=== PATIENT | female | born 1995 | race Two or more races ===

== ENCOUNTER 2024-11-13 10:31 | Emergency (ER) | payer MEDICAID ==
[~2024-11-13] VITALS: Ht 167.6 cm; Wt 80.0 kg
[2024-11-13] MEDS: OLANZAPINE 10 MG/VIAL IM ONE (10:46)
[2024-11-13] MEDS: LORAZEPAM 2MG/ML INJ IM ONE ×2 (10:46→17:58)
[2024-11-13 11:43] LABS: CLARITY URINE CLOUDY (CLEAR); COLOR URINE ORANGE (YELLOW); GLUCOSE URINE NEGATIVE (NEGATIVE); KETONES URINE 1+ (NEGATIVE); LEUKOCYTE ESTERASE URINE TRACE (NEGATIVE); NITRITE URINE POSITIVE (NEGATIVE); OCCULT BLOOD URINE 3+ (NEGATIVE); PH URINE 5.5 (4.5-8.0); PROTEIN URINE 2+ (NEGATIVE); SPECIFIC GRAVITY URINE 1.027 (1.005-1.030)
[2024-11-13 11:59] LABS: BASOPHILS % 0.2 % (0.0-2.0); HEMATOCRIT. 39.7 % (36.0-48.0); HEMOGLOBIN. 13.3 g/dL (12.0-16.0); LYMPHOCYTES % 9.5 % (20.0-50.0); MEAN CORPUSCULAR HEMOGLOBIN 30.6 pg (28.0-32.0); MEAN CORPUSCULAR HGB CONC 33.4 g/dL (31.0-37.0); MEAN CORPUSCULAR VOLUME 91.6 fL (81.0-99.0); MEAN PLATELET VOLUME 8.4 fl (7.4-10.4); MONOCYTES % 10.4 % (2.0-8.0); NEUTROPHILS % 79.9 % (40.0-76.0); PLATELET 307 x1000/uL (130-400); RED BLOOD CELL COUNT 4.33 mill/uL (4.2-5.4); RED CELL DISTRIBUTION WIDTH 13.3 % (11.6-14.6); WHITE BLOOD COUNT 12.8 x1000/uL (4.5-11.0)
[2024-11-13 12:03] LABS: SQUAMOUS EPITHELIAL CELL URINE 1+ /lpf (RARE/1+); WBC URINE NONE SEEN /hpf (0-2)
[2024-11-13 12:04] LABS: BACTERIA URINE 1+; YEAST URINE NONE SEEN
[2024-11-13] MEDS: CEPHALEXIN 250MG CAPSULE PO STA (12:06)
[2024-11-13 12:09] LABS: CHLORIDE 105 mEq/L (98-107); POTASSIUM 3.6 mEq/L (3.5-5.1); SODIUM 140 mEq/L (136-145)
[2024-11-13 12:10] LABS: CALCIUM 9.4 mg/dL (8.7-10.4); CARBON DIOXIDE 21 mEq/L (21-32)
[2024-11-13 12:15] LABS: CREATININE 1.1 mg/dL (0.6-1.0); GLUCOSE 76 mg/dL (70-105); UREA NITROGEN BLOOD 17 mg/dL (9-23)
[2024-11-13 12:30] LABS: HCG SCREEN NEGATIVE
[2024-11-13 12:36] LABS: ETHANOL BLOOD < 10 mg/dL (<10)
[2024-11-13 12:55] LABS: *AMPHETAMINES SCREEN URINE PRESUMPTIVE POSITIVE (NEGATIVE); *BENZODIAZEPINES SCREEN URINE NEGATIVE (NEGATIVE)
[2024-11-13 12:56] LABS: *BARBITURATES SCREEN URINE NEGATIVE (NEGATIVE); *COCAINE SCREEN URINE PRESUMPTIVE POSITIVE (NEGATIVE); CANNABINOID URINE SCREEN PRESUMPTIVE POSITIVE (NEGATIVE); ECSTASY MDMA SCREEN URINE NEGATIVE (NEGATIVE); METHADONE URINE SCREEN NEGATIVE (NEGATIVE); OPIATES URINE SCREEN NEGATIVE (NEGATIVE); PHENCYCLIDINE URINE SCREEN NEGATIVE (NEGATIVE)
[2024-11-13] MEDS ORDERED: DIPHENHYDRAMINE 50MG/ML VIAL IM PRN (17:45)
[2024-11-13] MEDS: DIPHENHYDRAMINE 50MG/ML VIAL IM STA (17:58)
[2024-11-13] MEDS: HALOPERIDOL LACTATE 5MG/ML VIAL IM ONE (17:58)
[2024-11-14] MEDS ORDERED: CEPHALEXIN 250MG CAPSULE PO NR (02:45)
[2024-11-14 08:55] VITALS: BP 132/75; PULSE 98; RESP 18; TEMP 36.6; O2SAT 99
== END 2024-11-14 09:16 | disposition home or self-care (01) ==
LOC: ER 10:31 → EDBD 10:31 → ER 11-14 09:16
DX: N39.0 Urinary tract infection, site not specified (principal); R46.2 Strange and inexplicable behavior; Z20.822 Contact with and (suspected) exposure to COVID-19; Z79.899 Other long term (current) drug therapy
CPT/HCPCS: 80305; 80048; 81003; 80320; 84703; 85025; 36415; 96372; 99291; 87426; J3490; J1200; J1630; J2060; G0480

== ENCOUNTER 2024-11-27 02:59 | Emergency (ER) | payer MEDICAID ==
[~2024-11-27] VITALS: Ht 175.3 cm; Wt 78.0 kg
[2024-11-27 03:04] VITALS: O2SAT 98
[2024-11-27] MEDS ORDERED: IBUP-2029 MT (05:14)
[2024-11-27] MEDS ORDERED: MUPI1OIN4 TP (05:14)
[2024-11-27] MEDS ORDERED: CLIN-194 MT (05:14)
[2024-11-27] MEDS: IBUPROFEN 600MG TABLET PO ONE (05:21)
[2024-11-27 05:50] VITALS: BP 118/78; PULSE 91; RESP 16; TEMP 36.8; O2SAT 98
== END 2024-11-27 05:29 | disposition home or self-care (01) ==
LOC: ER 02:59
DX: L03.119 Cellulitis of unspecified part of limb (principal); Z88.0 Allergy status to penicillin
CPT/HCPCS: 99281; 99283

== ENCOUNTER 2025-01-01 11:18 | Emergency (ER) | payer MEDICAID ==
[~2025-01-01] VITALS: Ht 172.7 cm; Wt 70.0 kg
[~2025-01-01 11:18] MED LIST: CLIN-194 MT; IBUP-2029 MT; MUPI1OIN4 TP
[2025-01-01 11:21] VITALS: BP 117/75; PULSE 96; RESP 16; TEMP 38.3; O2SAT 100
[2025-01-01] MEDS ORDERED: HYDR50TA54 PO (11:30)
== END 2025-01-01 11:55 | disposition home or self-care (01) ==
LOC: ER 11:48
DX: Z00.8 Encounter for other general examination (principal); F12.90 Cannabis use, unspecified, uncomplicated; Z79.899 Other long term (current) drug therapy; Z88.0 Allergy status to penicillin
CPT/HCPCS: 99283